=== PATIENT | male | born 1980 | race Caucasian/White ===

== ENCOUNTER 2018-01-31 20:20 | Emergency (ER) | payer MEDICAID ==
[~2018-01-31] VITALS: Ht 188 cm; Wt 79.5 kg
[2018-01-31 20:43] VITALS: BP 141/88
== END 2018-01-31 21:28 | disposition home or self-care (01) ==
LOC: EMS 20:21
DX: Z20.6 Contact with and (suspected) exposure to human immunodeficiency virus [HIV] (principal); F15.10 Other stimulant abuse, uncomplicated; J45.909 Unspecified asthma, uncomplicated; F17.210 Nicotine dependence, cigarettes, uncomplicated
CPT/HCPCS: 99283; 99406